=== PATIENT | male | born 1995 | race African-American/Black ===

== ENCOUNTER 2020-09-06 19:52 | Emergency (ER) | payer MEDICAID ==
[~2020-09-06] VITALS: Ht 185.4 cm; Wt 70.3 kg
--- NOTE | 2020-09-06 20:00 | NUR ---
PT BIBSELF C/O BURNING URINIATION WITH PENILE DISCHARGE. PT [id number] BREATHING EVENLY AND UNLABORED. PA AT BEDSIDE. PT ATTACHED TO MONITOR AND POX. PT GIVEN BLAKET AND CALL LIGHT WITHIN REACH
[2020-09-06] MEDS ORDERED: LIDOCAINE 1% INJ 50 ML MDV IJ ONE (20:15)
[2020-09-06] MEDS ORDERED: CEFTRIAXONE 1 G VIAL ONE (20:15)
[2020-09-06] MEDS ORDERED: LIDOCAINE /MPF 1% VIAL 5 ML VIAL ONE (20:17)
[2020-09-06] MEDS: CEFTRIAXONE 1 G VIAL IM ONE (20:20)
[2020-09-06] MEDS ORDERED: DOXY100C41 PO (20:27)
--- NOTE | 2020-09-06 20:29 | NUR ---
Patient discharged to home in stable condition. Written and verbal after care instructions given. Patient verbalizes understanding of instruction.pT ambulatory with a steady gait
[2020-09-06 20:31] LABS: BILIRUBIN,URINE Negative (NEGATIVE); COLOR,URINE YELLOW (YELLOW); LEUKOCYTE ESTERASE ,URINE Large (NEGATIVE); NITRITE, URINE Negative (NEGATIVE); PH,URINE 6.5 (5.0-8.0); PROTEIN,URINE Negative (NEGATIVE); UGLUCOSE Negative (NEGATIVE)
[2020-09-06 20:33] VITALS: BP 130/86
[2020-09-06 20:47] LABS: BACTERIA,URINE 2+ /HPF (None Seen); MUCUS,URINE Few /LPF (None Seen); SQUAMOUS EPITHELIAL CELL,UR Few /HPF (None Seen); URINE AMORPHOUS URATE Moderate /HPF (None Seen); WBC,URINE TOO NUMEROUS TO COUN /HPF (0-3)
== END 2020-09-06 20:29 | disposition home or self-care (01) ==
LOC: ER 19:57
DX: R36.9 Urethral discharge, unspecified (principal); Z20.2 Contact with and (suspected) exposure to infections with a predominantly sexual mode of transmission
CPT/HCPCS: 81001; 87086; 87491; 87591; 96372; 99283; J0696; J3490

== ENCOUNTER 2021-02-19 00:20 | Emergency (ER) | payer SELFPAY ==
[~2021-02-19] VITALS: Ht 185.4 cm; Wt 70.8 kg
[~2021-02-19 00:20] MED LIST: DOXY-326 PO
--- NOTE | 2021-02-19 01:17 | NUR ---
BIBSELF C/O BURNING UPON URINATION AND WHITE DISCHARGE FROM PENIS. STATES HE HAS HAD A NEW SEXUAL PARTNER. ALL VITALS STABLE MD WAS AT THE BEDSIDE FOR EVAL.
--- NOTE | 2021-02-19 01:18 | NUR ---
URINE COLLECTED AND SENT TO LAB
[2021-02-19] MEDS ORDERED: DOXYCYCLINE HYCLATE (100 MG) 100 MG TABLET ONE (01:32)
[2021-02-19] MEDS ORDERED: LIDOCAINE /MPF 1% VIAL 5 ML VIAL ONE (01:32)
[2021-02-19] MEDS ORDERED: CEFTRIAXONE 500 MG VIAL ONE (01:32)
[2021-02-19] MEDS: CEFTRIAXONE 1 G VIAL IM ONE (01:39)
[2021-02-19 01:40] LABS: BILIRUBIN,URINE NEGATIVE (NEGATIVE); COLOR,URINE YELLOW (YELLOW); LEUKOCYTE ESTERASE ,URINE MODERATE (NEGATIVE); NITRITE, URINE NEGATIVE (NEGATIVE); PROTEIN,URINE NEGATIVE (NEGATIVE); UGLUCOSE NEGATIVE (NEGATIVE); UROBILINOGEN,URINE 0.2 EU/dL (0.2)
[2021-02-19] MEDS: DOXYCYCLINE HYCLATE (100 MG) 100 MG TABLET PO ONE (01:40)
[2021-02-19] MEDS ORDERED: DOXY100C2 PO (01:40)
--- NOTE | 2021-02-19 01:42 | NUR ---
Patient discharged to home in stable condition. Written and verbal after care instructions given. Patient verbalizes understanding of instruction.
[2021-02-19 02:02] VITALS: BP 123/63
[2021-02-19 06:33] LABS: BACTERIA,URINE Few /HPF (None Seen); SQUAMOUS EPITHELIAL CELL,UR Rare /HPF (None Seen); WBC,URINE 21-50 /HPF (0-3)
== END 2021-02-19 01:42 | disposition home or self-care (01) ==
LOC: ER 00:22
DX: N34.2 Other urethritis (principal)
CPT/HCPCS: 81001; 87086; 87491; 87591; 96372; 99283; J0696; J3490

== ENCOUNTER 2023-05-03 13:51 | Emergency (ER) | payer MEDICAID ==
[~2023-05-03] VITALS: Ht 185.4 cm; Wt 69.9 kg
[~2023-05-03 13:51] MED LIST changes: +DOXY100C2 PO
[2023-05-03 14:02] VITALS: BP 128/72; TEMP 98.1
[2023-05-03] MEDS ORDERED: CEFTRIAXONE 500 MG VIAL IM ONE (14:30)
[2023-05-03] MEDS ORDERED: AZITHROMYCIN 250 MG TABLET PO ONE (14:30)
[2023-05-03] MEDS ORDERED: CEFTRIAXONE 500 MG VIAL ONE (14:30)
[2023-05-03] MEDS ORDERED: AZITHROMYCIN 250 MG TABLET ONE (14:31)
[2023-05-03 14:40] VITALS: O2SAT 98
[2023-05-06 03:06] LABS: NEISSERIA GONORRHOEAE NAA Negative (Negative)
[2023-05-06 04:08] LABS: CHLAMYDIA TRACHOMATIS NAA Positive (Negative)
== END 2023-05-03 14:41 | disposition home or self-care (01) ==
LOC: ER 13:56
DX: A64 Unspecified sexually transmitted disease (principal)
CPT/HCPCS: 99283; 96372; 87491; 87591; J0696

== ENCOUNTER 2023-12-09 21:03 | Emergency (ER) | payer MEDICAID ==
[~2023-12-09] VITALS: Ht 182.9 cm; Wt 69.4 kg
[2023-12-09 21:37] VITALS: BP 131/84; TEMP 98.2
[2023-12-09] MEDS ORDERED: FAMOTIDINE (20 MG) 20 MG TABLET ONE (21:45)
[2023-12-09] MEDS ORDERED: diphenhydrAMINE HCL 25 MG CAPSULE ONE (21:45)
[2023-12-09] MEDS ORDERED: predniSONE 20 MG TABLET ONE (21:45)
[2023-12-09] MEDS: diphenhydrAMINE HCL 50 MG CAPSULE PO ONE (21:48)
[2023-12-09] MEDS: FAMOTIDINE (20 MG) 20 MG TABLET PO ONE (21:48)
[2023-12-09] MEDS: predniSONE 10 MG TABLET PO ONE (21:48)
[2023-12-09] MEDS ORDERED: DIPH25CA83 PO (22:31)
[2023-12-09] MEDS ORDERED: PRED20TA PO (22:31)
[2023-12-09] MEDS ORDERED: FAMO20TA80 PO (22:31)
[2023-12-09 23:48] VITALS: O2SAT 99
== END 2023-12-09 22:45 | disposition home or self-care (01) ==
LOC: ER 21:06
DX: T78.49XA Other allergy, initial encounter (principal); L50.9 Urticaria, unspecified; Z60.2 Problems related to living alone; X58.XXXA Exposure to other specified factors, initial encounter
CPT/HCPCS: 99284; Q0163; J7512 ×2

== ENCOUNTER 2024-08-10 20:54 | Emergency (ER) | payer SELFPAY ==
[~2024-08-10] VITALS: Ht 182.9 cm; Wt 72.6 kg
[~2024-08-10 20:54] MED LIST changes: +DIPH25CA83 PO; +FAMO20TA80 PO; +PRED20TA PO
[2024-08-10 22:03] LABS: BASOPHILS # (AUTO) 0.1 K/uL (0.0-0.2); BASOPHILS % (AUTO) 0.7 % (0.0-2.0); EOSINOPHILS # (AUTO) 0.3 K/uL (0.0-0.7); EOSINOPHILS % (AUTO) 4.2 % (0.0-6.0); HEMATOCRIT 52 % (39-51); HEMOGLOBIN 17.3 g/dL (13.5-17.5); LYMPHOCYTES # (AUTO) 2.3 K/uL (0.8-4.8); LYMPHOCYTES % (AUTO) 30.9 % (20.0-44.0); MEAN CORPUSCULAR HEMOGLOBIN 28 PG (26.0-33.0); MEAN CORPUSCULAR HGB CONC 34 g/dl (31.0-36.0); MEAN CORPUSCULAR VOLUME 84 fL (80-96); MONOCYTES # (AUTO) 0.6 K/uL (0.1-1.30); MONOCYTES % (AUTO) 8.3 % (2.0-12.0); NEUTROPHILS # (AUTO) 4.2 K/uL (1.8-8.9); NEUTROPHILS % (AUTO) 55.9 % (43.0-81.0); PLATELET COUNT (AUTO) 162 K/uL (150-450); RED BLOOD CELL COUNT(AUTO) 6.12 MIL/uL (4.5-6.0); RED CELL DISTRIBUTION WIDTH 13.8 % (11.5-15.0); WHITE BLOOD COUNT (AUTO) 7.5 K/uL (4.3-11.0)
[2024-08-10 22:11] LABS: CALCIUM, SERUM 9.7 mg/dL (8.5-10.1); CARBON DIOXIDE 28 mmol/L (21-32); CHLORIDE 104 mmol/L (98-107); GLUCOSE 97 mg/dL (74-106); SODIUM SERUM 139 mmol/L (136-145); UREA NITROGEN, BLOOD 11 mg/dL (7-18)
[2024-08-10] MEDS ORDERED: KETOROLAC TROMETHAMINE 15 MG/ML VIAL ONE (22:33)
[2024-08-10] MEDS: KETOROLAC TROMETHAMINE 15 MG/ML VIAL IV ONE (22:37)
[2024-08-10 23:00] VITALS: BP 126/69; TEMP 98.3; O2SAT 100
== END 2024-08-10 23:01 | disposition home or self-care (01) ==
LOC: ER 20:56
DX: R07.89 Other chest pain (principal); Z60.2 Problems related to living alone; Z79.52 Long term (current) use of systemic steroids; Z79.899 Other long term (current) drug therapy
CPT/HCPCS: 99285; 71045; 96372; 93005 ×2; 85025; 80048; 36415; 84484; J1885

== ENCOUNTER 2025-02-21 15:51 | Emergency (ER) | payer SELFPAY ==
[~2025-02-21] VITALS: Ht 182.9 cm; Wt 73.9 kg
[2025-02-21 16:19] VITALS: BP 136/89; TEMP 98.2; O2SAT 97
[2025-02-21] MEDS ORDERED: CEFTRIAXONE 500 MG VIAL ONE (17:13)
[2025-02-21] MEDS ORDERED: AZITHROMYCIN 250 MG TABLET ONE (17:14)
[2025-02-21] MEDS ORDERED: LIDOCAINE /MPF 1% VIAL 5 ML VIAL ONE (17:16)
[2025-02-21] MEDS: AZITHROMYCIN 250 MG TABLET PO ONE (17:23)
[2025-02-21] MEDS: CEFTRIAXONE 1 G VIAL IM ONE (17:23)
[2025-02-21 17:33] LABS: APPEARANCE,URINE CLEAR (CLEAR); BLOOD, URINE Negative Ery/uL (NEGATIVE); LEUKOCYTE ESTERASE ,URINE Negative (NEGATIVE); NITRITE, URINE NEGATIVE (NEGATIVE); UGLUCOSE Negative (NEGATIVE)
[2025-02-21 23:40] LABS: HIV-1/2 ANTIBODY NON REACTIVE (NONREACTIVE)
[2025-02-23 04:07] LABS: HEPATITIS B CORE AB, TOTAL Negative (Negative)
[2025-02-23 08:07] LABS: RAPID PLASMA REAGIN QUAL. Non Reactive (Non Reactive)
[2025-02-24 04:11] LABS: CHLAMYDIA TRACHOMATIS NAA Negative (Negative); NEISSERIA GONORRHOEAE NAA Negative (Negative)
[2025-02-24 20:07] LABS: *HIV-1 RNA BY PCR <20 copies/mL (.)
== END 2025-02-21 18:18 | disposition home or self-care (01) ==
LOC: ER 16:00
DX: Z11.3 Encounter for screening for infections with a predominantly sexual mode of transmission (principal); Z79.52 Long term (current) use of systemic steroids
CPT/HCPCS: 99283; 96372; 81003; 87806; 86803; 87491 ×2; 87340; 87591; 87536; J0696; J3490; 36415; 86592; 86593; 86704